=== PATIENT | male | born 1985 | race Caucasian/White ===

== ENCOUNTER 2023-12-15 18:33 | Emergency (ER) | payer OTHER, SELFPAY ==
[2023-12-15 18:50] VITALS: BP 132/88; PULSE 86; TEMP 36.8; O2SAT 98; BMI 32.1
--- NOTE | 2023-12-15 18:54 | XR_ITS ---
The [address] [address] Patient Name: MAGNO RUELAS MRN: [id number] date: 1985 Sex: M Assigned Patient Location: ER Current Patient Location: Accession/Order Number: [id number] Exam Date: 12/15/2023 19:00 Report Date: 12/15/2023 20:42 At the request of: DUNG CARCAMO Procedure: XR elbow RT min 3V XR elbow RT min 3V: HISTORY: Pain Pain COMPARISON: None available. TECHNIQUE: 3 views of the right elbow are submitted. FINDINGS: BONES/JOINT SPACES: There is no acute fracture or dislocation. The joint spaces are well-maintained. SOFT TISSUES: No joint effusion is present. XR/XR elbow RT min 3V IMPRESSION: No acute fracture of the right elbow. Electronically authenticated by: AD MIRZA Date: 12/15/2023 20:42
--- NOTE | 2023-12-15 20:24 | ED.UPPEXIN1 ---
HPI HPI - Extremity Injury (Upper) General Chief Complaint: Extremity Injury, Upper Stated Complaint: UPPER EXTREMITY INJURY Time Seen by Provider: 12/15/23 20:02 Source: patient Mode of arrival: walk-in Limitations: no limitations History of Present Illness HPI narrative: Patient is a 38-year-old male who presents to the emergency department for pain in the right elbow and dorsal forearm after he felt a pop in the elbow while lifting. He has been doing a lot of activity outside of the home the last several days. He complains of pain radiating from the lateral elbow into the dorsal forearm, although he has no significant pain at rest, he has pain with supination. He denies numbness or tingling. No falls or direct injury. No medications prior to arrival. Related Data Home Medications ?Medication ?Instructions ?Recorded ?Confirmed dicyclomine 10 mg capsule 20 mg PO TID PRN abdominal pain 12/15/23 12/15/23 pantoprazole 40 mg tablet,delayed 40 mg PO Q12H PRN ABD pain 12/15/23 12/15/23 release Previous Rx's ?Medication ?Instructions ?Recorded ketorolac 10 mg tablet 10 mg PO TID PRN pain #10 tabs 12/15/23 prednisone 20 mg tablet See Rx Instructions .Route 12/15/23 .COMPLEX #12 tabs Allergies Allergy/AdvReac Type Severity Reaction Status Date / Time No Known Drug Allergies Allergy Verified 12/15/23 18:54 Opioid HPI Opioid Management Most Recent Pain and Opioid Data: No Data to Display Review of Systems ROS Constitutional Denies: fever or chills Ears, nose, mouth, and throat Denies: throat pain or nasal congestion Respiratory Denies: shortness of breath Gastrointestinal Denies: nausea or vomiting Integumentary/Breast Denies: rash Hematologic/Lymphatic Denies: easy bruising or easy bleeding Exam Narrative Exam Narrative: Gen.: Awake, alert, in no distress Head: Normocephalic, atraumatic ENT: Moist mucous membranes Respiratory: No respiratory distress Extremities: Moves extremities equally, normal flexion extension at the right elbow, no joint effusion or swelling noted. Pain in the proximal forearm with supination of the hand. 2+ right radial pulse. Normal training generalist strength in the right hand. No obvious deformity or shortening. Psych: Normal mood and affect Neuro: No focal neuro deficit Skin: Warm, dry, intact Constitutional Vital Signs, click to edit/add: Last Vital Signs Temp 98.3 F 12/15/23 18:50 Pulse 86 12/15/23 18:50 Resp 18 12/15/23 18:50 BP 132/88 12/15/23 18:50 Pulse Ox 98 12/15/23 18:50 O2 Del Method Room Air 12/15/23 18:50 Course Vital Signs Vital signs: Vital Signs Temperature 98.3 F 12/15/23 18:50 Pulse Rate 86 12/15/23 18:50 Respiratory Rate 18 12/15/23 18:50 Blood Pressure 132/88 12/15/23 18:50 Pulse Oximetry 98 12/15/23 18:50 Oxygen Delivery Method Room Air 12/15/23 18:50 Temperature 98.3 F 12/15/23 18:50 Pulse Rate 86 12/15/23 18:50 Respiratory Rate 18 12/15/23 18:50 Blood Pressure 132/88 12/15/23 18:50 Pulse Oximetry 98 12/15/23 18:50 Oxygen Delivery Method Room Air 12/15/23 18:50 MDM - Extremity Injury (Upper) MDM Narrative Medical decision making narrative: Elbow x-rays with no evidence of fracture or dislocation. Patient is neurovascularly intact, given ice at discharge. Rest, ice, elevate. Orthopedic follow-up as needed. With steroid taper and NSAIDs given for home. Return to the ER if symptoms change or worsen SUPERVISED APC VISIT, PHYSICIAN ATTESTATION: Based on the medical record the care appears appropriate. ? Medical Records Attestation: I reviewed the patient's medical records. Imaging Data xr elbow: Attestation: I have reviewed the pertinent imaging results. Radiologist's impression: ITS Impressions Elbow X-Ray 12/15/23 18:54 IMPRESSION: No acute fracture of the right elbow. Electronically authenticated by: AD MIRZA Date: 12/15/2023 20:42 Discharge Plan Discharge Stand Alone Forms: Portal Instructions Chief Complaint: Extremity Injury, Upper Clinical Impression: Strain of right elbow and forearm Patient Disposition: Home, Self-Care Time of Disposition Decision: 20:19 Condition: Good Prescriptions / Home Meds: New ketorolac 10 mg tablet 10 mg PO TID PRN (Reason: pain) Qty: 10 0RF prednisone 20 mg tablet See Rx Instructions .ROUTE .COMPLEX Qty: 12 0RF Rx Instructions: 3 tabs daily for 2 days, then 2 tabs daily for 2 days, then 1 tab daily for 2 days No Action pantoprazole 40 mg tablet,delayed release (DR/EC) 40 mg PO Q12H PRN (Reason: ABD pain) dicyclomine 10 mg capsule 20 mg PO TID PRN (Reason: abdominal pain) Print Language: Amharic Instructions: Elbow Strain (ED) Referrals: Ajay Griffin DO [Primary Care Provider] - 1 week Daniele Sawant MD [Physician] - As needed Discharge Date/Time: 12/15/23 20:40
[2023-12-15] MEDS: KETOROLAC TROMETHAMINE 10 MG TABLET PO (20:31)
[2023-12-15] MEDS: PREDNISONE 20 MG TABLET 60 MG PO (20:31)
== END 2023-12-15 20:40 | disposition home or self-care (01) ==
PROVIDERS: Emergency Provider Emergency Medicine; PCP Family Medicine
DX: S56.911A Strain of unspecified muscles, fascia and tendons at forearm level, right arm, initial encounter (principal); X50.9XXA Other and unspecified overexertion or strenuous movements or postures, initial encounter
CPT/HCPCS: 73080; 99283; J7512